=== PATIENT | female | born 1970 | race African-American/Black ===

== ENCOUNTER 2017-08-18 03:45 | Emergency (ER) | payer OTHER ==
[2017-08-18 05:13] VITALS: TEMP 97.7; BMI 27.4
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
[2017-08-18] MEDS ORDERED: MIDAZOLAM HCL 2 MG/2 ML SINGLE DOSE VIAL ONE (09:22)
[2017-08-18] MEDS ORDERED: MIDAZOLAM HCL 2 MG/2 ML SINGLE DOSE VIAL IM ONE (09:22)
[2017-08-18] MEDS ORDERED: MINERAL OIL ENEMA 133 ML ENEMA PR ONE (09:29)
[2017-08-18] MEDS ORDERED: SODIUM PHOSPHATE/NA BIPHOS 133 ML ENEMA PR ONE (17:02)
[2017-08-18 17:54] VITALS: BP 142/94; PULSE 91
== END 2017-08-18 17:56 | disposition home or self-care (01) ==
LOC: JER 03:45
PROC: 3E023NZ Introduction of Analgesics, Hypnotics, Sedatives into Muscle, Percutaneous Approach (ICD-10-PCS; principal; 2017-08-18)
DX: R10.84 Generalized abdominal pain (principal)
CPT/HCPCS: 36415; 74019-TC; 74176-TC; 82272; 84703; 96372; 99285-25; Q9967